=== PATIENT | male | born 1955 | race Caucasian/White ===

== ENCOUNTER 2017-11-01 15:24 | Inpatient (IN) | payer OTHER ==
[~2017-11-01] VITALS: Ht 182.9 cm; Wt 87.0 kg
[~2017-11-01 15:24] MED LIST: ALPR0.5T5 PO; AMOX1TAB12 PO; ATOR80TA PO; ENOX100S5 SQ; FLUT1POW2 INH; OMEP-110 PO; OMNIPAQUE 350 MG/ML, 100ML BOTTLE ONE; OXYC1TAB7 PO; WARF10TA PO; WARF5TAB PO
[2017-11-01] MEDS ORDERED: WARF7.5T PO (16:05)
[2017-11-01] MEDS ORDERED: SODIUM CHLORIDE FLUSH 10ML SYR IVF ONE (16:30)
[2017-11-01 16:36] LABS: ALBUMIN 3.1 g/dL (3.4-5.0); ANION GAP 8 mmol/L (5-15); CALCIUM 8.7 mg/dL (8.5-10.1); CHLORIDE 102 mmol/L (98-107)
[2017-11-01 16:37] LABS: CREATININE 1.11 mg/dL (0.7-1.3); MEAN CORPUSCULAR HEMOGLOBIN 26.7 pg (27.5-34.5); MEAN CORPUSCULAR VOLUME 83.4 fL (81-97); MEAN PLATELET VOLUME 8.3 fL (7.4-10.4); PLATELET COUNT 499 x10^3/uL (130-400); RED BLOOD COUNT 4.07 x10^6/uL (4.38-5.82); RED CELL DISTRIBUTION WIDTH 17.9 % (9.4-14.8)
[2017-11-01 16:55] LABS: MD YES
[2017-11-01 16:56] LABS: BAND#(MANUAL) 0.32 x10^3/uL; BANDS%(MANUAL) 2 % (0-7); LYMPH#(MANUAL) 0.65 x10^3/uL (1-3.4); LYMPHS% (MANUAL) 4 % (22-44); SEG#(MANUAL) 14.58 x10^3/uL (1.8-6.8); SEGS% (MANUAL) 90 % (42-75)
[2017-11-01 16:57] LABS: ANISOCYTOSIS 1+; HYPOCHROMIA 1+; MONOS#(MANUAL) 0.65 x10^3/uL (0.3-2.7); MONOS% (MANUAL) 4 % (2-9); POLYCHROMASIA 1+
[2017-11-01 17:00] LABS: <PLATELET ESTIMATE> ADEQUATE; LARGE PLATELETS 1+
[2017-11-01 17:01] LABS: OVALOCYTES 1+
[2017-11-01] MEDS ORDERED: ONDANSETRON 2MG/ML, 2ML IVPush ONE (17:30)
[2017-11-01] MEDS ORDERED: MORPHINE SULFATE 4 MG/ML, 1ML IVPush PRN (17:30)
[2017-11-01] MEDS ORDERED: MORPHINE SULFATE 4 MG/ML, 1ML ONE ×2 (17:32→21:54)
[2017-11-01] MEDS ORDERED: ONDANSETRON 2MG/ML, 2ML ONE (17:32)
[2017-11-01] MEDS ORDERED: MAALOX/HYOSCYAMINE/LIDOCAINE 45 ML BTL ONE (18:59)
[2017-11-01] MEDS ORDERED: MAALOX/HYOSCYAMINE/LIDOCAINE 45 ML BTL PO ONE (20:00)
[2017-11-01] MEDS ORDERED: METH-356 PO (21:28)
[2017-11-01] MEDS ORDERED: OXYC10TA6 PO (21:28)
[2017-11-01] MEDS ORDERED: PHYTONADIONE 1 MG/0.5ML IM ONE (21:30)
[2017-11-01] MEDS ORDERED: HYDROmorphone 1 MG/ML, 1ML IVPush PRN (22:30)
[2017-11-01] MEDS ORDERED: SODIUM CHLORIDE FLUSH 10ML SYR IVF PRN (22:30)
[2017-11-01] MEDS ORDERED: ONDANSETRON 2MG/ML, 2ML IVPush PRN (22:30)
[2017-11-02] VITALS (20 sets, daily range): BP systolic 114–151; BP diastolic 48–109
[2017-11-02] MEDS ORDERED: ONDANSETRON 2MG/ML, 2ML IVPush PRN
[2017-11-02] MEDS ORDERED: morphine SULFATE 10 MG/ML, 1ML IVPush PRN
[2017-11-02] MEDS ORDERED: ZOLPIDEM 5MG TABLET PO PRN
[2017-11-02] MEDS ORDERED: PROMETHAZINE 25 MG/ML, 1ML IM PRN
[2017-11-02] MEDS ORDERED: LABETALOL 5MG/ML, 20ML IVPush PRN
[2017-11-02] MEDS ORDERED: ONDANSETRON ODT 4 MG PO PRN
[2017-11-02] MEDS ORDERED: POLYETHYLENE GLYCOL 17 GM PACKET PO PRN
[2017-11-02] MEDS ORDERED: ALPR0.5T PO (01:35)
[2017-11-02] MEDS: HYDROmorphone 2 MG/ML, 1ML IVPush PRN ×3 (02:36→20:09)
[2017-11-02] MEDS ORDERED: MAALOX/HYOSCYAMINE/LIDOCAINE 45 ML BTL PO ONE (03:00)
[2017-11-02] MEDS ORDERED: SODIUM CHLORIDE 0.9% IVPush ONE (05:30)
[2017-11-02] MEDS ORDERED: ESOMEPRAZOLE SODIUM IVPush ONE (05:30)
[2017-11-02 05:36] LABS: MEAN CORPUSCULAR HEMOGLOBIN 26.7 pg (27.5-34.5); MEAN CORPUSCULAR HGB CONC 32.3 g/dL (33.2-36.2); MEAN CORPUSCULAR VOLUME 82.5 fL (81-97); MEAN PLATELET VOLUME 8.2 fL (7.4-10.4); PLATELET COUNT 528 x10^3/uL (130-400); RED BLOOD COUNT 3.35 x10^6/uL (4.38-5.82); RED CELL DISTRIBUTION WIDTH 18.3 % (9.4-14.8)
[2017-11-02 05:38] LABS: ALANINE AMINOTRANSFERASE 36 U/L (12-78); ALBUMIN 2.9 g/dL (3.4-5.0); ANION GAP 13 mmol/L (5-15); CALCIUM 8.3 mg/dL (8.5-10.1); CHLORIDE 95 mmol/L (98-107); CREATININE 2.08 mg/dL (0.7-1.3)
[2017-11-02 05:40] LABS: ALKALINE PHOSPHATASE 42 U/L (45-117); BILIRUBIN,TOTAL 1.5 mg/dL (0.2-1.0); TOTAL PROTEIN 6.8 g/dL (6.4-8.2)
[2017-11-02 05:53] LABS: MD YES
[2017-11-02 05:55] LABS: ANISOCYTOSIS 1+; BAND#(MANUAL) 1.35 x10^3/uL; BANDS%(MANUAL) 6 % (0-7); LYMPH#(MANUAL) 1.13 x10^3/uL (1-3.4); LYMPHS% (MANUAL) 5 % (22-44); MONOS#(MANUAL) 0.68 x10^3/uL (0.3-2.7); MONOS% (MANUAL) 3 % (2-9); POLYCHROMASIA 1+; SEG#(MANUAL) 19.35 x10^3/uL (1.8-6.8); SEGS% (MANUAL) 86 % (42-75)
[2017-11-02 05:56] LABS: <PLATELET ESTIMATE> INCREASED; HYPOCHROMIA 1+; OVALOCYTES 1+
[2017-11-02 05:57] LABS: LARGE PLATELETS 1+
[2017-11-02 05:58] LABS: MICROCYTOSIS 1+
[2017-11-02 05:59] LABS: INTERNATIONAL NORMALIZED RATIO 13.54 (0.93-1.1); PROTHROMBIN TIME 133.8 Seconds (9.6-11.5)
[2017-11-02] MEDS ORDERED: SODIUM CHLORIDE 0.9% 1,000 ML IV SCH (06:00)
[2017-11-02] MEDS ORDERED: SODIUM CHLORIDE 0.9% IV ONE (06:30)
[2017-11-02] MEDS ORDERED: ESOMEPRAZOLE SODIUM IV ONE (06:30)
[2017-11-02] MEDS ORDERED: PHYTONADIONE 10 MG in SODIUM CHLORIDE 0.9% 50 ML IV ONE ×2 (06:30→15:00)
[2017-11-02] MEDS: SENNA/DOCUSATE TABLET PO SCH (09:00)
[2017-11-02] MEDS ORDERED: LACTULOSE 10 GM/15 ML UDC PO SCH (09:00)
[2017-11-02] MEDS ORDERED: OMEPRAZOLE 20 MG CAPSULE.DR PO SCH (09:00)
[2017-11-02] MEDS: OXYcodone IR 5MG TABLET PO SCH ×4 (09:56→21:11)
[2017-11-02 12:16] LABS: MEAN CORPUSCULAR HEMOGLOBIN 27.1 pg (27.5-34.5); MEAN CORPUSCULAR HGB CONC 32.8 g/dL (33.2-36.2); MEAN CORPUSCULAR VOLUME 82.5 fL (81-97); MEAN PLATELET VOLUME 7.9 fL (7.4-10.4); PLATELET COUNT 419 x10^3/uL (130-400); RED BLOOD COUNT 2.78 x10^6/uL (4.38-5.82); RED CELL DISTRIBUTION WIDTH 18.3 % (9.4-14.8)
[2017-11-02 12:17] LABS: HEMOGRAM NOTE RECHECKED
[2017-11-02 12:35] LABS: BASOPHILS # (AUTO) 0.03 x10^3/uL (0-0.1); BASOPHILS % (AUTO) 0 % (0-1); EOSINOPHILS % (AUTO) 0 % (1-7); LYMPHOCYTES # (AUTO) 0.96 x10^3/uL (1-3.4); LYMPHOCYTES % (AUTO) 5 % (22-44); MD SCAN; MONOCYTES # (AUTO) 1.19 x10^3/uL (0.2-0.8); MONOCYTES % (AUTO) 7 % (2-9); NEUTROPHILS # (AUTO) 15.66 x10^3/uL (1.8-6.8); NEUTROPHILS % (AUTO) 88 % (42-75)
[2017-11-02] MEDS: ESOMEPRAZOLE SODIUM 80 MG in SODIUM CHLORIDE 0.9% 100 ML IV SCH (14:50)
[2017-11-02 15:59] LABS: INTERNATIONAL NORMALIZED RATIO 2.54 (0.93-1.1); PROTHROMBIN TIME 25.9 Seconds (9.6-11.5)
[2017-11-02] MEDS: ATORVASTATIN 80 MG TABLET PO SCH (20:09)
[2017-11-02 21:28] LABS: MEAN CORPUSCULAR HEMOGLOBIN 27.7 pg (27.5-34.5); MEAN CORPUSCULAR HGB CONC 33.5 g/dL (33.2-36.2); MEAN CORPUSCULAR VOLUME 82.6 fL (81-97); PLATELET COUNT 399 x10^3/uL (130-400); RED BLOOD COUNT 3.29 x10^6/uL (4.38-5.82); RED CELL DISTRIBUTION WIDTH 17.6 % (9.4-14.8)
[2017-11-02 21:33] LABS: INTERNATIONAL NORMALIZED RATIO 1.43 (0.93-1.1); PROTHROMBIN TIME 14.8 Seconds (9.6-11.5)
[2017-11-02 21:49] LABS: MD YES
[2017-11-02 21:52] LABS: BAND#(MANUAL) 1.04 x10^3/uL; BANDS%(MANUAL) 5 % (0-7); LYMPH#(MANUAL) 1.25 x10^3/uL (1-3.4); LYMPHS% (MANUAL) 6 % (22-44); MONOS#(MANUAL) 1.25 x10^3/uL (0.3-2.7); MONOS% (MANUAL) 6 % (2-9); NRBC % (MANUAL) 1 % (0-1); SEG#(MANUAL) 17.26 x10^3/uL (1.8-6.8); SEGS% (MANUAL) 83 % (42-75)
[2017-11-02 21:53] LABS: ANISOCYTOSIS 1+; MICROCYTOSIS 1+; POLYCHROMASIA 1+
[2017-11-02 21:54] LABS: OVALOCYTES 1+; STOMATOCYTES 1+
[2017-11-02 21:55] LABS: <PLATELET ESTIMATE> ADEQUATE; HYPOCHROMIA 1+; LARGE PLATELETS 1+
[2017-11-02] MEDS ORDERED: HEPARIN wt. based STROKE protocol MC SCH (22:30)
[2017-11-02] MEDS: HEPARIN 25,000 UNITS/500ML PMX 500 ML IV PRN (22:40)
[2017-11-03] MEDS: HYDROmorphone 2 MG/ML, 1ML IVPush PRN ×2 (02:31→09:05)
[2017-11-03 02:33] LABS: MEAN CORPUSCULAR HEMOGLOBIN 27.3 pg (27.5-34.5); MEAN CORPUSCULAR VOLUME 82.6 fL (81-97); PLATELET COUNT 414 x10^3/uL (130-400); RED BLOOD COUNT 3.22 x10^6/uL (4.38-5.82); RED CELL DISTRIBUTION WIDTH 17.8 % (9.4-14.8)
[2017-11-03 02:44] LABS: ANION GAP 5 mmol/L (5-15); CALCIUM 8.2 mg/dL (8.5-10.1); CHLORIDE 100 mmol/L (98-107); CREATININE 1.16 mg/dL (0.7-1.3)
[2017-11-03] MEDS: ESOMEPRAZOLE SODIUM 80 MG in SODIUM CHLORIDE 0.9% 100 ML IV SCH ×3 (02:46→22:19)
[2017-11-03 03:30] LABS: MD YES
[2017-11-03 03:33] LABS: BAND#(MANUAL) 1.59 x10^3/uL; BANDS%(MANUAL) 8 % (0-7); LYMPH#(MANUAL) 1.39 x10^3/uL (1-3.4); LYMPHS% (MANUAL) 7 % (22-44); MONOS% (MANUAL) 3 % (2-9); MYELOCYTES% (MANUAL) 1 % (0-0); SEG#(MANUAL) 16.12 x10^3/uL (1.8-6.8); SEGS% (MANUAL) 81 % (42-75)
[2017-11-03 03:34] LABS: ANISOCYTOSIS 1+; HYPOCHROMIA 1+; MICROCYTOSIS 1+; NRBC % (MANUAL) 1 % (0-1); OVALOCYTES 1+; POLYCHROMASIA 1+
[2017-11-03 03:35] LABS: <PLATELET ESTIMATE> ADEQUATE; LARGE PLATELETS 1+; STOMATOCYTES 1+
[2017-11-03] MEDS: METHADONE 10 MG TABLET PO PRN ×2 (04:39→18:15)
[2017-11-03 04:51] LABS: INTERNATIONAL NORMALIZED RATIO 1.19 (0.93-1.1); PROTHROMBIN TIME 12.3 Seconds (9.6-11.5)
[2017-11-03] MEDS ORDERED: SODIUM CHLORIDE 0.9% 1,000 ML IV SCH (06:00)
[2017-11-03] MEDS: OXYcodone IR 5MG TABLET PO SCH (06:11)
[2017-11-03] MEDS: SODIUM CHLORIDE 0.9% 1,000 ML IV SCH (06:12)
[2017-11-03] MEDS: SENNA/DOCUSATE TABLET PO SCH (09:06)
[2017-11-03 11:07] LABS: MEAN CORPUSCULAR HEMOGLOBIN 26.9 pg (27.5-34.5); MEAN CORPUSCULAR HGB CONC 32.3 g/dL (33.2-36.2); MEAN CORPUSCULAR VOLUME 83.3 fL (81-97); MEAN PLATELET VOLUME 8.3 fL (7.4-10.4); PLATELET COUNT 452 x10^3/uL (130-400); RED BLOOD COUNT 3.38 x10^6/uL (4.38-5.82); RED CELL DISTRIBUTION WIDTH 17.6 % (9.4-14.8)
[2017-11-03 11:26] LABS: MD YES
[2017-11-03 11:28] LABS: BAND#(MANUAL) 1.48 x10^3/uL; BANDS%(MANUAL) 7 % (0-7); BASOS#(MANUAL) 0.21 x10^3/uL (0-0.1); BASOS% (MANUAL) 1 % (0-1); LYMPH#(MANUAL) 1.06 x10^3/uL (1-3.4); LYMPHS% (MANUAL) 5 % (22-44); METAMYELOCYTES# (MANUAL) 0.21 x10^3/uL (0-0); METAMYELOCYTES% (MANUAL) 1 % (0-1); MONOS#(MANUAL) 1.06 x10^3/uL (0.3-2.7); MONOS% (MANUAL) 5 % (2-9); SEG#(MANUAL) 17.09 x10^3/uL (1.8-6.8); SEGS% (MANUAL) 81 % (42-75)
[2017-11-03 11:29] LABS: ANISOCYTOSIS 1+; HYPOCHROMIA 1+; MICROCYTOSIS 1+; OVALOCYTES 1+; POLYCHROMASIA 1+
[2017-11-03 11:30] LABS: NRBC % (MANUAL) 1 % (0-1)
[2017-11-03 11:31] LABS: <PLATELET ESTIMATE> INCREASED; LARGE PLATELETS 1+
[2017-11-03] MEDS ORDERED: HYDROmorphone 2 MG/ML, 1ML IVPush PRN (12:00)
[2017-11-03] MEDS: OXYcodone IR 5MG TABLET PO PRN ×2 (12:34→19:57)
[2017-11-03] MEDS: HEPARIN 25,000 UNITS/500ML PMX 500 ML IV PRN (21:32)
[2017-11-03] MEDS: ATORVASTATIN 80 MG TABLET PO SCH (21:40)
[2017-11-03 22:12] LABS: MEAN CORPUSCULAR HEMOGLOBIN 27.3 pg (27.5-34.5); MEAN CORPUSCULAR HGB CONC 32.1 g/dL (33.2-36.2); MEAN PLATELET VOLUME 7.9 fL (7.4-10.4); PLATELET COUNT 453 x10^3/uL (130-400); RED BLOOD COUNT 3.22 x10^6/uL (4.38-5.82); RED CELL DISTRIBUTION WIDTH 18.4 % (9.4-14.8)
[2017-11-03 22:37] LABS: MD YES
[2017-11-03 22:39] LABS: BAND#(MANUAL) 1.18 x10^3/uL; BANDS%(MANUAL) 6 % (0-7); LYMPH#(MANUAL) 1.18 x10^3/uL (1-3.4); LYMPHS% (MANUAL) 6 % (22-44); METAMYELOCYTES# (MANUAL) 0.79 x10^3/uL (0-0); METAMYELOCYTES% (MANUAL) 4 % (0-1); MONOS#(MANUAL) 0.99 x10^3/uL (0.3-2.7); MONOS% (MANUAL) 5 % (2-9); REACTIVE LYMPHS % (MANUAL) 1 % (0-0); SEG#(MANUAL) 15.37 x10^3/uL (1.8-6.8); SEGS% (MANUAL) 78 % (42-75)
[2017-11-03 22:40] LABS: ANISOCYTOSIS 1+
[2017-11-03 22:41] LABS: HYPOCHROMIA 1+; POLYCHROMASIA 1+
[2017-11-03 22:42] LABS: <PLATELET ESTIMATE> INCREASED; LARGE PLATELETS 1+; OVALOCYTES 1+; TEAR DROPS 1+
[2017-11-04 04:31] LABS: MEAN CORPUSCULAR HEMOGLOBIN 27.3 pg (27.5-34.5); MEAN CORPUSCULAR HGB CONC 32.2 g/dL (33.2-36.2); MEAN CORPUSCULAR VOLUME 84.7 fL (81-97); MEAN PLATELET VOLUME 8.2 fL (7.4-10.4); PLATELET COUNT 428 x10^3/uL (130-400); RED BLOOD COUNT 3.11 x10^6/uL (4.38-5.82); RED CELL DISTRIBUTION WIDTH 18.3 % (9.4-14.8)
[2017-11-04 04:51] LABS: MD YES
[2017-11-04 04:55] LABS: BAND#(MANUAL) 0.72 x10^3/uL; BANDS%(MANUAL) 4 % (0-7); EOS#(MANUAL) 0.18 x10^3/uL (0.0-0.4); EOS% (MANUAL) 1 % (1-7); LYMPH#(MANUAL) 1.26 x10^3/uL (1-3.4); LYMPHS% (MANUAL) 7 % (22-44); METAMYELOCYTES# (MANUAL) 0.18 x10^3/uL (0-0); METAMYELOCYTES% (MANUAL) 1 % (0-1); MONOS#(MANUAL) 1.26 x10^3/uL (0.3-2.7); MONOS% (MANUAL) 7 % (2-9); NRBC % (MANUAL) 6 % (0-1); SEGS% (MANUAL) 80 % (42-75)
[2017-11-04 04:56] LABS: <PLATELET ESTIMATE> INCREASED; ANISOCYTOSIS 1+; HYPOCHROMIA 1+; LARGE PLATELETS 1+; OVALOCYTES 1+; POLYCHROMASIA 1+; TEAR DROPS 1+
[2017-11-04] MEDS: OXYcodone IR 5MG TABLET PO PRN ×3 (05:16→17:30)
[2017-11-04] MEDS: METHADONE 10 MG TABLET PO PRN (05:45)
[2017-11-04] MEDS: SODIUM CHLORIDE 0.9% 1,000 ML IV SCH (08:00)
[2017-11-04] MEDS: METHADONE 10 MG TABLET PO SCH ×3 (09:00→21:58)
[2017-11-04] MEDS: SENNA/DOCUSATE TABLET PO SCH (09:00)
[2017-11-04] MEDS ORDERED: PROPOFOL 50 ML ONE (11:10)
[2017-11-04] MEDS ORDERED: KETAMINE 10 MG/ML, 20ML ONE (11:10)
[2017-11-04] MEDS: ESOMEPRAZOLE SODIUM 80 MG in SODIUM CHLORIDE 0.9% 100 ML IV SCH ×2 (12:32→22:33)
[2017-11-04] MEDS ORDERED: WARFARIN MECH. VALVE PROTOCOL 2.5 to 3.5 XX PRN (13:00)
[2017-11-04 13:09] LABS: INTERNATIONAL NORMALIZED RATIO 1.35 (0.93-1.1)
[2017-11-04] MEDS ORDERED: WARFARIN 10 MG TABLET PO-COUM ONE (18:00)
[2017-11-04 20:10] VITALS: BP 146/69
[2017-11-04] MEDS: ATORVASTATIN 80 MG TABLET PO SCH (20:18)
[2017-11-05 02:53] VITALS: BP 126/66
[2017-11-05] MEDS: OXYcodone IR 5MG TABLET PO PRN ×4 (04:04→21:41)
[2017-11-05] MEDS: HEPARIN 25,000 UNITS/500ML PMX 500 ML IV PRN ×2 (04:33→20:13)
[2017-11-05] MEDS: SODIUM CHLORIDE 0.9% 1,000 ML IV SCH (08:00)
[2017-11-05 08:09] VITALS: BP 108/46
[2017-11-05] MEDS: METHADONE 10 MG TABLET PO SCH ×3 (08:23→20:06)
[2017-11-05] MEDS: SENNA/DOCUSATE TABLET PO SCH (08:23)
[2017-11-05 08:42] LABS: INTERNATIONAL NORMALIZED RATIO 1.97 (0.93-1.1); PROTHROMBIN TIME 20.2 Seconds (9.6-11.5)
[2017-11-05] MEDS: ESOMEPRAZOLE SODIUM 80 MG in SODIUM CHLORIDE 0.9% 100 ML IV SCH (10:18)
[2017-11-05] MEDS: OMEPRAZOLE 20 MG CAPSULE.DR PO SCH ×2 (12:56→21:41)
[2017-11-05 14:15] VITALS: BP 127/60
[2017-11-05 17:45] LABS: OCCULT BLOOD NEGATIVE (NEGATIVE)
[2017-11-05] MEDS ORDERED: WARFARIN 7.5 MG TABLET PO-COUM ONE (18:00)
[2017-11-05] MEDS: ATORVASTATIN 80 MG TABLET PO SCH (20:06)
[2017-11-05 20:11] VITALS: BP 160/64
[2017-11-06 02:56] VITALS: BP 136/71
[2017-11-06] MEDS: OXYcodone IR 5MG TABLET PO PRN ×4 (04:26→19:36)
[2017-11-06 05:58] LABS: INTERNATIONAL NORMALIZED RATIO 3.13 (0.93-1.1); PROTHROMBIN TIME 31.8 Seconds (9.6-11.5)
[2017-11-06] MEDS: HEPARIN 25,000 UNITS/500ML PMX 500 ML IV PRN ×2 (07:30→12:34)
[2017-11-06] MEDS: SODIUM CHLORIDE 0.9% 1,000 ML IV SCH (08:00)
[2017-11-06 08:12] VITALS: BP 128/73
[2017-11-06] MEDS: METHADONE 10 MG TABLET PO SCH ×3 (08:36→21:30)
[2017-11-06] MEDS: OMEPRAZOLE 20 MG CAPSULE.DR PO SCH ×2 (08:37→21:30)
[2017-11-06] MEDS: SENNA/DOCUSATE TABLET PO SCH (08:37)
[2017-11-06 12:10] VITALS: BP 114/75
[2017-11-06] MEDS ORDERED: WARFARIN 2.5 MG TABLET PO-COUM ONE (18:00)
[2017-11-06 20:00] VITALS: BP 132/73
[2017-11-06] MEDS: ATORVASTATIN 80 MG TABLET PO SCH (21:30)
[2017-11-07 02:00] VITALS: BP 132/65
[2017-11-07] MEDS: OXYcodone IR 5MG TABLET PO PRN ×3 (05:11→22:00)
[2017-11-07 06:05] LABS: INTERNATIONAL NORMALIZED RATIO 2.33 (0.93-1.1); PROTHROMBIN TIME 23.8 Seconds (9.6-11.5)
[2017-11-07 07:42] VITALS: BP 131/74
[2017-11-07] MEDS: SODIUM CHLORIDE 0.9% 1,000 ML IV SCH (08:00)
[2017-11-07] MEDS: METHADONE 10 MG TABLET PO SCH ×3 (08:17→20:17)
[2017-11-07] MEDS: OMEPRAZOLE 20 MG CAPSULE.DR PO SCH ×2 (08:17→20:18)
[2017-11-07] MEDS: SENNA/DOCUSATE TABLET PO SCH (08:18)
[2017-11-07 14:29] VITALS: BP 146/71
[2017-11-07] MEDS ORDERED: WARFARIN 7.5 MG TABLET PO-COUM ONE (18:00)
[2017-11-07] MEDS: ATORVASTATIN 80 MG TABLET PO SCH (20:18)
[2017-11-07 21:52] VITALS: BP 122/74
[2017-11-08 00:36] VITALS: BP 129/76
[2017-11-08] MEDS: OXYcodone IR 5MG TABLET PO PRN ×3 (03:48→17:21)
[2017-11-08 07:57] VITALS: BP 138/68
[2017-11-08 08:32] LABS: INTERNATIONAL NORMALIZED RATIO 2.69 (0.93-1.1); PROTHROMBIN TIME 27.4 Seconds (9.6-11.5)
[2017-11-08] MEDS: SENNA/DOCUSATE TABLET PO SCH (09:00)
[2017-11-08] MEDS: OMEPRAZOLE 20 MG CAPSULE.DR PO SCH ×2 (09:09→21:16)
[2017-11-08] MEDS: METHADONE 10 MG TABLET PO SCH ×3 (09:09→21:16)
[2017-11-08 14:06] VITALS: BP 128/69
[2017-11-08] MEDS ORDERED: WARFARIN 7.5 MG TABLET PO-COUM ONE (18:00)
[2017-11-08 19:30] VITALS: BP 137/64
[2017-11-08] MEDS: ATORVASTATIN 80 MG TABLET PO SCH (21:16)
[2017-11-09] MEDS: OXYcodone IR 5MG TABLET PO PRN ×3 (00:29→10:55)
[2017-11-09 01:50] VITALS: BP 112/65
[2017-11-09 05:27] LABS: INTERNATIONAL NORMALIZED RATIO 2.99 (0.93-1.1); PROTHROMBIN TIME 30.4 Seconds (9.6-11.5)
[2017-11-09 06:55] VITALS: BP 120/72
[2017-11-09] MEDS: METHADONE 10 MG TABLET PO SCH (08:35)
[2017-11-09] MEDS: SENNA/DOCUSATE TABLET PO SCH (08:35)
[2017-11-09] MEDS: OMEPRAZOLE 20 MG CAPSULE.DR PO SCH (08:36)
[2017-11-09] MEDS ORDERED: METH-356 PO (10:24)
[2017-11-09] MEDS ORDERED: OXYC5TAB3 PO (10:24)
[2017-11-09 11:25] VITALS: BP 127/78
[2017-11-09] MEDS ORDERED: WARFARIN 7.5 MG TABLET PO-COUM ONE (18:00)
== END 2017-11-09 13:00 | disposition home or self-care (01) | DRG 604 ==
LOC: ED 16:40 → EDIP 22:13 → 3NE 23:18 → CCU 11-02 07:41 → 4NOR 11-04 18:23
PROVIDERS: ADMIT Family Medicine; ATTEND Family Medicine
PROC: 30233L1 Transfusion of Nonautologous Fresh Plasma into Peripheral Vein, Percutaneous Approach (ICD-10-PCS; principal; 2017-11-02)
PROC: 30233N1 Transfusion of Nonautologous Red Blood Cells into Peripheral Vein, Percutaneous Approach (ICD-10-PCS; 2017-11-02)
PROC: 30233K1 Transfusion of Nonautologous Frozen Plasma into Peripheral Vein, Percutaneous Approach (ICD-10-PCS; 2017-11-02)
PROC: 0DJ08ZZ Inspection of Upper Intestinal Tract, Via Natural or Artificial Opening Endoscopic (ICD-10-PCS; 2017-11-05)
DX: S30.0XXA Contusion of lower back and pelvis, initial encounter (principal); K22.6 Gastro-esophageal laceration-hemorrhage syndrome; D68.9 Coagulation defect, unspecified; I11.0 Hypertensive heart disease with heart failure; I50.9 Heart failure, unspecified; W10.9XXA Fall (on) (from) unspecified stairs and steps, initial encounter; Z79.01 Long term (current) use of anticoagulants; T45.515A Adverse effect of anticoagulants, initial encounter; Y92.89 Other specified places as the place of occurrence of the external cause; E78.00 Pure hypercholesterolemia, unspecified; G89.4 Chronic pain syndrome; Y93.89 Activity, other specified; Y99.8 Other external cause status; K21.9 Gastro-esophageal reflux disease without esophagitis; K22.70 Barrett's esophagus without dysplasia; K44.9 Diaphragmatic hernia without obstruction or gangrene; Z66 Do not resuscitate; Z79.891 Long term (current) use of opiate analgesic; Z86.73 Personal history of transient ischemic attack (TIA), and cerebral infarction without residual deficits; Z95.2 Presence of prosthetic heart valve; M79.605 Pain in left leg; M79.81 Nontraumatic hematoma of soft tissue; M54.9 Dorsalgia, unspecified
CPT/HCPCS: 36415; 36430; 72193; 80048; 80053; 82040; 82272; 83735; 85014; 85018; 85025; 85520; 85610; 85730; 86850; 86900; 86923; 87040; 87081; 96372; 96374; 96375; J1170; J1644; J2405; J2550; J2704; J3430; J7030; P9016; P9017

== ENCOUNTER 2021-07-10 15:20 | Outpatient (CLI) | payer MEDICARE | END 2021-07-10 23:59 | disposition home or self-care (01) | LOC: CFH 15:20 | PROVIDERS: ATTEND Family Medicine | DX: G95.89 Other specified diseases of spinal cord (principal) ==